=== PATIENT | female | born 1970 | race Caucasian/White ===

== ENCOUNTER → 2016-11-02 | Outpatient (CLI) | payer BC ==
[~2016-11-02] MED LIST: MULT-506 PO; ONDA4TAB10 SL
== END | disposition home or self-care (01) ==
LOC: C.PATHSPEC 16:55
PROVIDERS: ATTEND Orthopaedic Surgery
DX: R22.32 Localized swelling, mass and lump, left upper limb (principal)

== ENCOUNTER 2017-05-20 13:31 | Emergency (ER) | payer BC ==
[~2017-05-20] VITALS: Ht 162.6 cm; Wt 87.0 kg
[2017-05-20 13:42] VITALS: BP 161/94; PULSE 82; TEMP 37; O2SAT 99; Ht 162.6 cm; Wt 87.0 kg
[2017-05-20] MEDS ORDERED: ONDANSETRON 4MG OD TAB PO ONE (14:00)
[2017-05-20] MEDS ORDERED: MULT-506 PO (14:00)
[2017-05-20] MEDS ORDERED: ONDA4TAB10 SL (14:29)
--- NOTE | 2017-05-20 14:30 | EMERGENCY ROOM VISIT NOTE ---
History First contact with patient: 13:48 Chief Complaint: HEAD INJURY (MINOR) Stated Complaint: HEAD INJURY, BUMP ON HEAD W/PAIN History of Present Illness The patient is a 47 year old female who presents to the Emergency Room with complaints of head injury. The patient states yesterday at 11 AM she stepped on the prongs of a rake and the handle came up and hit her on the right side of her forehead. The patient denies any loss of consciousness any dizziness or visual changes. The patient did have a slight headache. She also admits to some nausea which continues today. The patient also states that she was at work today and stated that she could not concentrate when looking at the computer so her employer told her to come to the emergency room. The patient denies any recent other head injuries. Review of Systems 10 system review was performed and was negative unless stated otherwise history of present illness. Past Medical/Surgical History Uterine ablation Social History Smoking Status: Never Smoker Smokeless Tobacco Use: No Alcohol Use: occasionally Drug Use: none Marital Status: Housing Status: lives with family Occupation Status: employed Current/Historical Medications Scheduled Multivitamin (Multivitamin), 1 TAB PO DAILY Physical Exam Vital Signs Date Time Temp Pulse Resp B/P (MAP) Pulse Ox O2 Delivery O2 Flow Rate FiO2 05/20/17 13:45 20 05/20/17 13:42 37.0 82 20 161/94 99 Room Air Physical Exam GENERAL: 39-year-old white female appears in no acute distress. MENTAL Status: Alert and oriented 3. HEAD: Small contusion noted on the right side of the forehead otherwise scalp is unremarkable. EYES: PERRLA. EOMs intact. EARS: Canals clear. TMs without fluid level noted. NECK: Supple, no lymphadenopathy noted. No carotid bruits noted. LUNGS: Clear auscultation without wheezes rales or rhonchi. CARDIAC: Regular rate and rhythm without murmur. Pulses is full and equal throughout. NEURO:Cranial nerves two through 12 intact. Cerebellar function intact with [id number]. Fine motor intact with alternating finger motions. Medical Decision & Procedures Medications Administered Medications (Trade) Dose Ordered Sig/Jovon Route Start Time Stop Time Status Last Admin Dose Admin Ondansetron HCl (Zofran Odt) 4 mg ONE ONCE PO 05/20/17 14:00 05/20/17 14:01 DC 05/20/17 14:08 4 MG ED Course The patient was evaluated. The patient's EMR medication list were reviewed. The patient was given Zofran 4 mg ODT for nausea. The patient was reevaluated was feeling better. The patient was discharged home in stable condition. Medical Decision Differential diagnosis include head contusion, concussion, intracranial bleed, subarachnoid hemorrhage I did not believe that the patient has an intracranial bleed or a concussion based on mechanism of injury. [facility] Drug Monitoring Program Search Results: patient reviewed within database Medication Reconcilliation Current Medication List: was personally reviewed by me Blood Pressure Screening Patient's blood pressure: Elevated blood pressure Blood pressure disposition: Elevated BP felt to be situational Impression Primary Impression: Head contusion Additional Impression: Nausea Departure Information Dispostion Home / Self-Care Condition GOOD Prescriptions Ondasetron Odt (ZOFRAN ODT) 4 Mg Tab 4 MG SL Q6H for Nausea, #10 TAB Prov: Nelly Meyer PA-C 05/20/17 Referrals No Doctor, Assigned (PCP) Forms HOME CARE DOCUMENTATION FORM, IMPORTANT VISIT INFORMATION Patient Instructions ED Head Injury Closed, My [facility] Additional Instructions Tylenol as needed for headache. Take Zofran as needed for nausea. The home and rest for the remainder of the day. If you have any severe headache, visual changes, uncontrolled nausea vomiting return to ER immediately Problem Qualifiers Primary Impression: Head contusion Encounter type: initial encounter Contusion of head detail: other part of head Qualified Codes: S00.83XA - Contusion of other part of head, initial encounter
== END 2017-05-20 14:36 | disposition home or self-care (01) ==
LOC: C.EDB 13:32 → C.EDD 14:36
DX: S00.83XA Contusion of other part of head, initial encounter (principal); R11.0 Nausea; W27.1XXA Contact with garden tool, initial encounter; W22.8XXA Striking against or struck by other objects, initial encounter; Z98.890 Other specified postprocedural states